=== PATIENT | female | born 1965 | race Caucasian/White ===

== ENCOUNTER 2017-02-24 17:06 | Emergency (ER) | payer MEDICAID ==
[~2017-02-24] VITALS: Ht 152.4 cm; Wt 118.0 kg
[2017-02-25] MEDS ORDERED: ONDANSETRON 4MG ODT PO ONE (03:30)
[2017-02-25] MEDS ORDERED: KETOROLAC 30MG/ML VIAL IM ONE (03:30)
[2017-02-25 03:49] LABS: CHLORIDE 98 mEq/L (98-107)
[2017-02-25 03:51] LABS: EOSINOPHILS % 4.6 % (0.0-5.0); HEMATOCRIT. 40.6 % (36.0-48.0); HEMOGLOBIN. 13.1 g/dL (12.0-16.0); LYMPHOCYTES % 26.3 % (20.0-50.0); MEAN CORPUSCULAR HEMOGLOBIN 27.3 pg (28.0-32.0); MEAN CORPUSCULAR VOLUME 84.4 fL (81.0-99.0); MONOCYTES % 11.4 % (2.0-8.0); NEUTROPHILS % 56.7 % (40.0-76.0); PLATELET 444 x1000/uL (130-400); RED BLOOD CELL COUNT 4.81 mill/uL (4.2-5.4); RED CELL DISTRIBUTION WIDTH 14.8 % (11.6-14.6)
[2017-02-25 03:55] LABS: PROTHROMBIN TIME 10.2 sec (9.4-11.6)
[2017-02-25 03:58] LABS: CARBON DIOXIDE 27 mEq/L (21-32)
[2017-02-25 04:24] LABS: CLARITY URINE CLEAR (CLEAR); COLOR URINE YELLOW (YELLOW); KETONES URINE NEGATIVE (NEGATIVE); LEUKOCYTE ESTERASE URINE NEGATIVE (NEGATIVE); NITRITE URINE NEGATIVE (NEGATIVE); OCCULT BLOOD URINE NEGATIVE (NEGATIVE); PROTEIN URINE NEGATIVE (NEGATIVE); SPECIFIC GRAVITY URINE 1.011 (1.005-1.030); UROBILINOGEN URINE 0.2 E.U./dL (0.2-1.0)
[2017-02-25] MEDS ORDERED: ONDANSETRON HCL 4MG/2ML VIAL IV ONE (05:15)
[2017-02-25] MEDS ORDERED: MORPHINE SULFATE 4 MG/ML CPJ (NOT FOR IM USE) IV ONE (05:15)
[2017-02-25 07:07] VITALS: BP 133/72
== END 2017-02-25 08:16 | disposition home or self-care (01) ==
LOC: ER 17:06
DX: J06.9 Acute upper respiratory infection, unspecified (principal); E11.65 Type 2 diabetes mellitus with hyperglycemia; E78.00 Pure hypercholesterolemia, unspecified; I10 Essential (primary) hypertension; M19.90 Unspecified osteoarthritis, unspecified site; M79.7 Fibromyalgia; R79.1 Abnormal coagulation profile; Z90.49 Acquired absence of other specified parts of digestive tract; Z98.890 Other specified postprocedural states; Z88.6 Allergy status to analgesic agent; Z88.8 Allergy status to other drugs, medicaments and biological substances
CPT/HCPCS: 36415; 71045; 80053; 81003; 82962; 85025; 85610; 87804; 93005; 96372; 96374; 96375; 99285; J1885; J2270; J2405; Q0162; Z7610

== ENCOUNTER 2018-01-29 09:28 | Emergency (ER) | payer MEDICAID ==
[~2018-01-29] VITALS: Ht 157.5 cm; Wt 92.5 kg
[2018-01-29] MEDS ORDERED: IBUPROFEN 600MG TABLET PO ONE (11:00)
[2018-01-29 12:18] LABS: BASOPHILS % 0.6 % (0.0-2.0); EOSINOPHILS % 1.7 % (0.0-5.0); HEMATOCRIT. 35.8 % (36.0-48.0); HEMOGLOBIN. 12.4 g/dL (12.0-16.0); LYMPHOCYTES % 22.1 % (20.0-50.0); MEAN CORPUSCULAR HEMOGLOBIN 30.6 pg (28.0-32.0); MEAN CORPUSCULAR VOLUME 88.6 fL (81.0-99.0); MEAN PLATELET VOLUME 7.6 fl (7.4-10.4); MONOCYTES % 9.2 % (2.0-8.0); NEUTROPHILS % 66.4 % (40.0-76.0); PLATELET 348 x1000/uL (130-400); RED BLOOD CELL COUNT 4.04 mill/uL (4.2-5.4); RED CELL DISTRIBUTION WIDTH 15.3 % (11.6-14.6)
[2018-01-29 12:24] LABS: CHLORIDE 104 mEq/L (98-107)
[2018-01-29] MEDS ORDERED: ACETAMINOPHEN 325MG TABLET PO ONE (12:45)
[2018-01-29 12:53] LABS: HCG SCREEN NEGATIVE
[2018-01-29 14:01] VITALS: BP 133/72
== END 2018-01-29 14:04 | disposition home or self-care (01) ==
LOC: ER 11:07
DX: M79.10 Myalgia, unspecified site (principal); M25.511 Pain in right shoulder; E11.9 Type 2 diabetes mellitus without complications; E78.00 Pure hypercholesterolemia, unspecified; I10 Essential (primary) hypertension; Z98.890 Other specified postprocedural states; Z88.8 Allergy status to other drugs, medicaments and biological substances; Z88.6 Allergy status to analgesic agent
CPT/HCPCS: 36415; 73030; 84703; 99284

== ENCOUNTER 2018-05-31 10:10 | Emergency (ER) | payer MEDICAID ==
[~2018-05-31] VITALS: Ht 152.4 cm; Wt 116.0 kg
[2018-05-31] MEDS ORDERED: DIPHENHYDRAMINE 50MG/ML VIAL IV ONE (11:30)
[2018-05-31] MEDS ORDERED: SODIUM CHLORIDE 0.9% 500 ML IV ONE (11:30)
[2018-05-31] MEDS ORDERED: METOCLOPRAMIDE HCL 10MG/2ML VIAL IV ONE (11:30)
[2018-05-31] MEDS ORDERED: KETOROLAC 15MG/ML VIAL IV ONE (11:30)
[2018-05-31] MEDS ORDERED: FENTANYL CITRATE/PF 50MCG/ML 2ML VIAL IV ONE (13:00)
[2018-05-31 14:46] VITALS: BP 123/87
== END 2018-05-31 14:50 | disposition home or self-care (01) ==
LOC: ER 10:10
DX: G89.29 Other chronic pain (principal); R51 Headache; R11.2 Nausea with vomiting, unspecified; H53.149 Visual discomfort, unspecified; E11.9 Type 2 diabetes mellitus without complications; I10 Essential (primary) hypertension; E78.00 Pure hypercholesterolemia, unspecified; Z88.6 Allergy status to analgesic agent; Z88.8 Allergy status to other drugs, medicaments and biological substances; Z98.890 Other specified postprocedural states
CPT/HCPCS: 96361; 96374; 96375; 99283; J1200; J2765; J3010; J7040

== ENCOUNTER 2020-11-26 09:40 | Emergency (ER) | payer MEDICAID ==
[~2020-11-26] VITALS: Ht 160 cm; Wt 81.0 kg
[~2020-11-26 09:40] MED LIST: ABIL10 PO; ASPI-1497 PO; ATOR20TA65 PO; BENA20TA10 MT; CALC-1139 MT; COLC0.6T66 PO; ESCI-7 MT; EZET10TA13 PO; FLUT1BLS9 IH; GABA800T97 MT; HYDR-4001 PO; INSU100I13 SQ; LEVO50TA8 PO; LIDO28.35 TP; LORA-250 PO; METO-539 PO; METO10TA3 PO; NALO4SPR NS; OMEP40CA20 MT
[2020-11-26] MEDS ORDERED: KETOROLAC 60MG/2ML VIAL IM ONE (10:45)
[2020-11-26 12:01] VITALS: BP 153/76
== END 2020-11-26 12:02 | disposition home or self-care (01) ==
LOC: ER 10:25
DX: M25.562 Pain in left knee (principal); M25.561 Pain in right knee; M25.572 Pain in left ankle and joints of left foot; E78.00 Pure hypercholesterolemia, unspecified; E11.9 Type 2 diabetes mellitus without complications; I10 Essential (primary) hypertension; Z88.8 Allergy status to other drugs, medicaments and biological substances; Z88.5 Allergy status to narcotic agent; Z79.899 Other long term (current) drug therapy; Z79.4 Long term (current) use of insulin; Z98.890 Other specified postprocedural states
CPT/HCPCS: 73560; 73610; 96372; 99284; J1885